=== PATIENT | male | born 1965 | race Caucasian/White ===

== ENCOUNTER 2018-12-28 09:56 | Outpatient (CLI) | payer OTHER ==
--- NOTE | 2018-12-29 12:39 | XRAY Report ---
Reason: CERVICAL RADICULOPATHY Procedure Date: 12/28/2018 Accession Number: [id number] / [id number] Procedure: WCP - Cervical Spine 2 View CPT Code: FULL RESULT: EXAM: CERVICAL SPINE RADIOGRAPHY EXAM DATE: 12/28/2018 10:23 AM. CLINICAL HISTORY: CERVICAL RADICULOPATHY. COMPARISONS: None. TECHNIQUE: 3 views. FINDINGS: Alignment: Straightening of the normal cervical lordosis. Minimal retrolisthesis C3 with respect to C4. Bones: The cervical vertebral bodies and posterior elements are well seen from the skull base through C7-T1. No fractures or bone lesions. Disks: Advanced C5-C6 and C6-C7 disk space narrowing. Remaining disk spaces well maintained. Facets: No degenerative disease. Soft Tissues: No prevertebral soft tissue swelling. Vascular calcification. IMPRESSION: Degenerative change cervical spine most marked C5-C6 and C6-C7 without superimposed acute findings. [facility]
== END 2018-12-28 09:57 | disposition home or self-care (01) ==
LOC: DI.WCP 09:56
PROVIDERS: ATTEND Physician Assistant Medical
DX: M50.322 Other cervical disc degeneration at C5-C6 level (principal)
CPT/HCPCS: 72040

== ENCOUNTER 2023-08-03 09:41 | Outpatient (CLI) | payer OTHER ==
[2023-08-03 11:57] LABS: BASOPHILS # (AUTO) 0.1 10^3/uL (0.0-0.1); BASOPHILS % (AUTO) 0.9 %; EOSINOPHILS # (AUTO) 0.1 10^3/uL (0.0-0.7); HCT - HEMATOCRIT 46.4 % (42.0-52.0); HGB - HEMOGLOBIN 15.6 g/dL (14.0-18.0); LYMPHOCYTES # (AUTO) 2.2 10^3/uL (1.5-3.5); LYMPHOCYTES % (AUTO) 33.7 %; MEAN CORPUSCULAR HGB CONC 33.6 g/dL (32.0-36.0); MEAN CORPUSCULAR VOLUME 89.2 fL (80.0-94.0); MEAN PLATELET VOLUME 9.9 fL (7.4-11.4); MONOCYTES # (AUTO) 0.5 10^3/uL (0.0-1.0); MONOCYTES % (AUTO) 7.1 %; NEUTROPHILS # (AUTO) 3.6 10^3/uL (1.5-6.6); NEUTROPHILS % (AUTO) 56.1 %; PLT - PLATELET COUNT 209 10^3/uL (130-450); RED CELL DISTRIBUTION WIDTH 12.8 % (12.0-15.0); WHITE BLOOD COUNT 6.5 x10^3/uL (4.8-10.8)
[2023-08-03 12:22] LABS: ALBUMIN 4.8 g/dL (3.2-5.5); ALKALINE PHOSPHATASE 48 IU/L (42-121); ALT ALANINE AMINOTRANSFERASE 20 IU/L (10-60); AST ASPARTATE AMINOTRANSFERASE 19 IU/L (10-42); BILIRUBIN,TOTAL 0.7 mg/dL (0.2-1.0); BUN - BLOOD UREA NITROGEN 11 mg/dL (6-20); CARBON DIOXIDE - CO2 25 mmol/L (21-32); CHLORIDE 104 mmol/L (101-111); CHOL/HDL RATIO 6.4 (<5.0); CHOLESTEROL 185 mg/dL; CREATININE 0.8 mg/dL (0.6-1.3); GFR - MDRD 100 (>89); GLUCOSE 107 mg/dL (74-104); HDL CHOLESTEROL 29 mg/dL; LDL CHOLESTEROL,CALCULATED 126 mg/dL; LDL/HDL RATIO 4.3 (<3.6); POTASSIUM 4.3 mmol/L (3.5-4.5); SODIUM 137 mmol/L (135-145); TOTAL PROTEIN 7.2 g/dL (6.4-8.9); TRIGLYCERIDES 149 mg/dL (48-352); VLDL CHOLESTEROL 30 mg/dL
[2023-08-03 12:29] LABS: THYROID STIMULATING HORMONE 1.56 uIU/mL (0.34-5.60)
== END 2023-08-03 09:42 | disposition home or self-care (01) ==
LOC: LAB.N 09:41
PROVIDERS: ATTEND Physician Assistant Medical
DX: I10 Essential (primary) hypertension (principal); E78.5 Hyperlipidemia, unspecified; Z12.5 Encounter for screening for malignant neoplasm of prostate; Z13.29 Encounter for screening for other suspected endocrine disorder
CPT/HCPCS: 36415; 80053; 80061; 83721; 84153; 84443; 85025

== ENCOUNTER 2024-08-08 11:10 | Outpatient (CLI) | payer OTHER ==
[2024-08-08 18:19] LABS: BASOPHILS % (AUTO) 0.7 %; EOSINOPHILS # (AUTO) 0.1 10^3/uL (0.0-0.7); EOSINOPHILS % (AUTO) 1.2 %; HCT - HEMATOCRIT 45.3 % (42.0-52.0); LYMPHOCYTES # (AUTO) 2.3 10^3/uL (1.5-3.5); LYMPHOCYTES % (AUTO) 39.1 %; MEAN CORPUSCULAR HEMOGLOBIN 29.7 pg (27.0-31.0); MEAN CORPUSCULAR HGB CONC 33.1 g/dL (32.0-36.0); MEAN CORPUSCULAR VOLUME 89.7 fL (80.0-94.0); MEAN PLATELET VOLUME 10.8 fL (7.4-11.4); MONOCYTES # (AUTO) 0.4 10^3/uL (0.0-1.0); MONOCYTES % (AUTO) 6.7 %; NEUTROPHILS # (AUTO) 3.1 10^3/uL (1.5-6.6); NEUTROPHILS % (AUTO) 52.1 %; PLT - PLATELET COUNT 224 10^3/uL (130-450); RED BLOOD COUNT 5.05 10^6/uL (4.70-6.10); RED CELL DISTRIBUTION WIDTH 12.6 % (12.0-15.0)
[2024-08-08 18:44] LABS: ALBUMIN 4.8 g/dL (3.2-5.5); ALBUMIN/GLOBULIN RATIO 2.1 (1.0-2.2); ALKALINE PHOSPHATASE 39 IU/L (42-121); ALT ALANINE AMINOTRANSFERASE 21 IU/L (10-60); AST ASPARTATE AMINOTRANSFERASE 20 IU/L (10-42); BILIRUBIN,TOTAL 0.8 mg/dL (0.2-1.0); BUN - BLOOD UREA NITROGEN 16 mg/dL (6-20); CALCIUM 9.8 mg/dL (8.5-10.3); CARBON DIOXIDE - CO2 25 mmol/L (21-32); CHLORIDE 103 mmol/L (101-111); CHOL/HDL RATIO 5.7 (<5.0); CHOLESTEROL 182 mg/dL; CREATININE 0.8 mg/dL (0.6-1.3); GFR - MDRD 99 (>89); GLUCOSE 91 mg/dL (74-104); HDL CHOLESTEROL 32 mg/dL; LDL CHOLESTEROL,CALCULATED 138 mg/dL; LDL/HDL RATIO 4.3 (<3.6); POTASSIUM 4.2 mmol/L (3.5-4.5); SODIUM 135 mmol/L (135-145); TOTAL PROTEIN 7.1 g/dL (6.4-8.9); TRIGLYCERIDES 59 mg/dL; VLDL CHOLESTEROL 12 mg/dL
[2024-08-08 18:51] LABS: THYROID STIMULATING HORMONE 1.87 uIU/mL (0.34-5.60)
== END 2024-08-08 11:11 | disposition home or self-care (01) ==
LOC: LAB.N 11:10
PROVIDERS: ATTEND Physician Assistant Medical
DX: Z00.00 Encounter for general adult medical examination without abnormal findings (principal); Z12.5 Encounter for screening for malignant neoplasm of prostate; E78.5 Hyperlipidemia, unspecified
CPT/HCPCS: 36415; 80053; 80061; 83721; 84153; 84443; 85025